=== PATIENT | male | born 1975 | race Two or more races ===

== ENCOUNTER 2017-10-20 18:53 | Emergency (ER) | payer OTHER ==
[2017-10-20 19:08] VITALS: BP 136/92
[2017-10-20] MEDS ORDERED: carBAMazepine 200 MG Tab PO STA (19:55)
--- NOTE | 2017-10-20 20:03 | EDM.PDOC ---
ED HPI GENERAL MEDICAL PROBLEM - General Chief Complaint: General Stated Complaint: NEEDS MEDS REFILLED Time Seen by Provider: 10/20/17 19:13 Source of Information: Reports: Patient, Family (Daughter), RN (Farida) History Limitations: Reports: No Limitations - History of Present Illness INITIAL COMMENTS - FREE TEXT/NARRATIVE: The patient states that he is on carbamazepine 400 mg po BID for a "stroke" that he suffered in 1997. Upon further questioning, it appears that the patient suffered a cerebral hemorrhage, requiring a right craniotomy and cranioplasty. He states that about that time he suffered a seizure, and has been on several antiepileptics, including Dilantin, but is currently on carbamazepine alone. He states that his most recent prescription for this was from this ER, however, our medical records indicate that the patient was seen in this ED only once before, on 12/11/2016, for a slip and fall, striking his head. He underwent a CT scan of his head, which demonstrated right parietal encephalomalacia and prior craniotomy. He was discharged home with a prescription for Rim[place] and Flexeril, but I do not see a prescription for carbamazepine. The patient now presents stating that he ran out of his carbamazepine. He states that he took his usual dose yesterday morning, 10/19/2017, but only one pill (200 mg) last night. He has not taken any today. He states that if he does not take his carbamazepine for proximally 4 days, he develops tingling and numbness on his left side. It is not clear when his last actual seizure was. The patient states that he moved to this area from [place], [place] about 4 years ago. The patient does not have a PCP or Neurologist. - Related Data Allergies Allergy/AdvReac Type Severity Reaction Status Date / Time No Known Allergies Allergy Verified 10/20/17 19:08 Home Meds: Home Meds carBAMazepine [Carbamazepine] 2 tab PO BID 10/20/17 [History] carBAMazepine [Carbamazepine] 2 tab PO Q12H #60 tablet 10/20/17 [Rx] Past Medical History Neurological History: Reports: CVA (Hemorrhagic) - Past Surgical History Head Surgeries/Procedures: Reports: Craniotomy Social & Family History - Family History Family Medical History: Noncontributory - Tobacco Use Smoking Status *Q: Never Smoker - Caffeine Use Caffeine Use: Reports: Coffee - Recreational Drug Use Recreational Drug Use: No ED ROS GENERAL - Review of Systems Review Of Systems: ROS reveals no pertinent complaints other than HPI. ED EXAM, GENERAL - Physical Exam Exam: See Below Exam Limited By: No Limitations General Appearance: Alert, WD/WN, No Apparent Distress Eye Exam: Bilateral Eye: Normal Inspection Ears: Normal External Exam, Hearing Grossly Normal Nose: Normal Inspection, No Blood Throat/Mouth: Normal Inspection, Normal Lips, Normal Voice, No Airway Compromise Head: Atraumatic, Other (Right parietal craniotomy scar) Neck: Normal Inspection, Full Range of Motion Neurological: Alert, Oriented, Normal Cognition, Normal Gait, No Motor/Sensory Deficits Psychiatric: Normal Affect Skin Exam: Warm, Dry, Intact, Normal Color, No Rash Course - Vital Signs Last Recorded V/S: Last Vital Signs Temp 36.6 C 10/20/17 19:05 Pulse 66 10/20/17 19:05 Resp 16 10/20/17 19:05 BP 136/92 H 10/20/17 19:05 Pulse Ox 96 10/20/17 19:05 - Orders/Labs/Meds Meds: Medications Discontinued Medications Generic Name Dose Route Start Last Admin Trade Name Jairo PRN Reason Stop Dose Admin Carbamazepine 800 mg 10/20/17 19:55 10/20/17 20:13 Tegretol Tab PO 10/20/17 19:56 800 mg ONETIME STA Administration - Re-Assessments/Exams Free Text/Narrative Re-Assessment/Exam: 10/20/17 19:57 I have ordered 400 mg oral carbamazepine for the patient to take now, and we will send him home with an additional 400 mg that he can take tomorrow morning ( Sunday). I will e-prescribe an additional 14 day supply, and I will refer the patient to Dr. Kashif Stratton, Neurologist, for follow-up. Departure - Departure Time of Disposition: 20:00 Disposition: Home, Self-Care 01 Condition: Good Clinical Impression: Medication refill - Discharge Information Prescriptions: carBAMazepine [Carbamazepine] 2 tab PO Q12H #60 tablet Instructions: Medicine Refill at the Emergency Department Referrals: PCP,None [Primary Care Provider] - Magali Stratton MD [Ordering Only Provider] - Forms: ED Department Discharge Additional Instructions: You were seen in the emergency room for a refill of your carbamazepine. You have been given your evening dose of carbamazepine in the ER, and an additional dose to take in the morning. An electronic prescription for carbamazepine has been sent to the [facility]. You can pick it up after noon tomorrow. It is important to understand that emergency rooms do not ordinarily refill medications. Follow-up with the Neurologist Dr. Kashif Stratton in [place] at the next available appointment. If any other problems, please do not hesitate to return to the ER.
== END 2017-10-20 20:11 | disposition home or self-care (01) ==
LOC: JD.ED 18:53 → EDBD 18:53 → JD.ED 20:11
DX: Z76.0 Encounter for issue of repeat prescription (principal)
CPT/HCPCS: 99282; A9270

== ENCOUNTER 2024-03-22 01:24 | Emergency (ER) | payer SELFPAY ==
[2024-03-22 01:32] VITALS: PULSE 80
[2024-03-22 01:48] LABS: BASOPHILS ABSOLUTE AUTO 0.1 K/mm3 (0.0-0.2); BASOPHILS PERCENT AUTO 0.8 % (0.0-1.0); EOSINOPHILS ABSOLUTE AUTO 0.2 K/mm3 (0.0-0.4); EOSINOPHILS PERCENT AUTO 2.7 % (0.0-6.0); HEMATOCRIT 47.6 % (42.0-52.0); HEMOGLOBIN 16.3 gm/dl (14.0-18.0); IMMATURE GRAN ABSOLUTE AUTO 0.02 K/mm3 (0.00-0.05); IMMATURE GRAN PERCENT AUTO 0.3 % (0.0-0.4); LYMPHOCYTES ABSOLUTE AUTO 2.3 K/mm3 (1.0-4.8); LYMPHOCYTES PERCENT AUTO 37.4 % (24.0-44.0); MEAN CORPUSCULAR HEMOGLOBIN 31.5 pg (28.0-32.0); MEAN CORPUSCULAR HGB CONC 34.2 g/dl (32.0-36.0); MEAN CORPUSCULAR VOLUME 91.9 fl (83.0-99.0); MONOCYTES ABSOLUTE AUTO 0.4 K/mm3 (0.0-0.8); MONOCYTES PERCENT AUTO 6.6 % (0.0-8.0); NEUTROPHILS ABSOLUTE AUTO 3.1 K/mm3 (1.8-7.7); NEUTROPHILS PERCENT AUTO 52.2 % (41.0-71.0); PLATELET COUNT,PLT 250 K/mm3 (150-400); RED BLOOD CELL COUNT 5.18 M/mm3 (4.52-5.90); WHITE BLOOD CELL COUNT,WBC 6.02 K/mm3 (3.9-11.3)
[2024-03-22] MEDS: Sodium Chloride 0.9% 1,000 ML IV ONE (02:01)
[2024-03-22 02:07] LABS: APPEARANCE,URINE SLT CLOUDY (Clear); BILIRUBIN,URINE NEGATIVE (Negative); COLOR,URINE YELLOW (Yellow); GLUCOSE,URINE NEGATIVE (Negative); KETONES,URINE NEGATIVE (Negative); LEUKOCYTE ESTERASE,URINE NEGATIVE (Negative); NITRITE,URINE NEGATIVE (Negative); OCCULT BLOOD,URINE NEGATIVE (Negative); PH,URINE 7.5 (5.0-8.0); PROTEIN,URINE NEGATIVE (Negative)
[2024-03-22 02:13] LABS: A/G RATIO 1.2 (1-2); ALBUMIN 3.9 g/dl (3.4-5.0); ANION GAP 8.5 (5-15); BILIRUBIN TOTAL 0.4 mg/dL (0.2-1.0); CALCIUM 8.5 mg/dL (8.5-10.1); EST CRCL DRUG DOSING (CG) 89.36 mL/min; POTASSIUM,K 3.5 mEq/L (3.5-5.1); PROTEIN TOTAL,TP 7.3 g/dl (6.4-8.2)
[2024-03-22 02:27] LABS: EPITHELIAL CELLS,URINE NOT SEEN /hpf (0-5); RBC,URINE NOT SEEN /hpf (0-5); WBC,URINE 0-5 /hpf (0-5)
[2024-03-22 02:28] LABS: AMORPHOUS SEDIMENT,URINE MANY /hpf (NOT SEEN); BACTERIA,URINE MODERATE /hpf (FEW); MUCUS,URINE NOT SEEN /hpf (FEW)
[2024-03-22 06:02] VITALS: BP 156/92
== END 2024-03-22 05:59 | disposition home or self-care (01) ==
LOC: JD.ED 01:24
DX: R06.02 Shortness of breath (principal); R07.9 Chest pain, unspecified; R53.83 Other fatigue; R53.81 Other malaise; Z86.73 Personal history of transient ischemic attack (TIA), and cerebral infarction without residual deficits; Z79.899 Other long term (current) drug therapy
CPT/HCPCS: 36415; 80053; 81001; 82947; 84484; 85025; 85379; 93005; 96360; 96361; 99285; J7030; 93010; 99282